=== PATIENT | male | born 2000 | race Caucasian/White ===

== ENCOUNTER 2020-10-27 11:43 | Outpatient (CLI) | payer BC, SELFPAY ==
--- NOTE | ~2020-10-27 | XR_ITS ---
EXAMINATION: XR ankle RT min 3V DATE: 10/27/2020 12:08 INDICATION: Right ankle injury. TECHNIQUE: 4 views of right ankle were obtained. COMPARISON: None. FINDINGS: Bone alignment is normal. No fracture. Joint spaces are well maintained. IMPRESSION: 1. Normal right ankle. Reviewed, dictated and finalized at location A. IMPRESSION: 1. Normal right ankle.
== END 2020-10-27 11:44 | disposition home or self-care (01) ==
LOC: ANHIMG 11:49
PROVIDERS: PCP Physician Assistant; Visit Provider Physician Assistant
DX: M25.579 Pain in unspecified ankle and joints of unspecified foot (principal)
CPT/HCPCS: 73610

== ENCOUNTER 2021-03-23 14:31 | Emergency (ER) | payer BC, SELFPAY ==
--- NOTE | ~2021-03-23 | XR_ITS ---
XR cervical spine 4-5V INDICATION: Neck pain after hockey injury TECHNIQUE: 5 views of the cervical spine. FINDINGS: No prior studies for comparison. The cervical spine is visualized to the cervicothoracic junction. Straightening of normal cervical lo rdosis, likely due to muscle spasm. There is no prevertebral soft tissue swelling, listhesis, or loss of vertebral body height. Intervertebral disc spaces are normal. The osseous central canal is lamb nt. No displaced cervical spine fractures are identified. IMPRESSION: 1. No acute osseous abnormality of the cervical spine. Reviewed, dictated and finalized at location B. [employer]
--- NOTE | 2021-03-23 14:38 | ED.NECK ---
HPI - Neck Pain/Injury General Chief Complaint: Neck Pain/Injury Stated Complaint: sore and stiff from hockey game Time Seen by Provider: 03/23/21 14:39 Source: patient, RN notes reviewed and old records reviewed Mode of arrival: ambulatory Limitations: no limitations History of Present Illness HPI Narrative: 20 year old male accompanied by mother presents to express care with complaints of having neck pain, headache and eye strain after playing in 2 hockey games over the weekend. Mother reports that yesterday's game was quite physical and patient got roughed up during game. Patient is able to move neck in all positions on own power and denies any tingling or numbness in his extremities. Patient voices headache and feelings of being chilled this afternoon with temp 102F noted at time of triage. Patient has not had COVID or influenza vaccinations, patient states that he was tested for COVID on Tuesday which was negative. Patient displays no nuchal rigidity,negative Kernig sign, no nausea or vomiting, alert and fully oriented . MD complaint: neck pain Related Data Allergies Allergy/AdvReac Type Severity Reaction Status Date / Time No Known Allergies Allergy Unverified 03/28/18 16:56 Review of Systems Review of Systems: CONSTITUTIONAL: Positive for fever, chills, or sweats. EYES: Denies visual changes, redness, or discharge, states eyes feel 'strained' ENT: Denies rhinorrhea, congestion, sore throat, or otalgia. CARDIOVASCULAR: Denies chest pain, palpitations, or edema. RESPIRATORY: Denies cough or dyspnea. GASTROINTESTINAL: Denies abdominal pain, nausea, vomiting, or diarrhea. GENITOURINARY: Denies dysuria or hematuria. SKIN: Denies rash or itching. MUSCULOSKELETAL: Denies back pain, positive for posterior neck pain, or myalgia. NEUROLOGIC: Positive for headache,no numbness, or weakness. PSYCHIATRIC: Denies anxiety or depression. All systems reviewed & are unremarkable except as noted in HPI and below PMFSH Past Medical History Medical History (Updated 03/23/21 @ 15:57 by Radha Leonard NP) Asthma Surgical History Surgical History (Updated 03/23/21 @ 15:58 by Radha Leonard NP) History of placement of ear tubes History of repair of pyloric stenosis Family History Family History (Updated 03/23/21 @ 16:03 by Radha Leonard NP) Other Heart disease Hypertension Social History Social History (Updated 03/23/21 @ 16:02 by Radha Leonard NP) Smoking status: Never smoker Alcohol intake: never Substance use: never Living arrangements: with family Gender identity (if verbalized by the patient): Male Comments At time of signature, agree with nursing past medical, surgical, social and family history. There is no relevant family history pertinent to the presenting complaint Exam Narrative: GENERAL: Well-appearing, well-nourished, and in no acute distress. HEAD: Normocephalic, atraumatic., no bruising noted to head or face EYES: PERRLA and EOMI, feelings of eye strain, no photophobia or visual changes. ENT: Nares clear, no rhinorrhea or epistaxis. Mucous membranes moist.TM's normal with god light reflex, throat has some redness no lesions or exudates noted no tonsil swelling. NECK: Supple. no lymphadenopathy, no nuchal rigidity, negative Kernig sign. CHEST: Clear to auscultation. No respiratory distress. HEART: Regular rate and rhythm. No murmur heard. Normal peripheral pulses. ABDOMEN: Soft, nontender, nondistended, normal active bowel sounds. EXTREMITIES: Normal range of motion. No edema. no tingling or numbness to upper extremities, SKIN: Warm, dry, no rash. NEURO: No focal deficits. Alert and oriented x3. Course Course Level of Care: Express Care Visit Vital Signs Vital signs: Vital Signs Temperature 38.8 C H 03/23/21 15:11 Pulse Rate 81 03/23/21 15:11 Respiratory Rate 16 03/23/21 15:11 Blood Pressure 130/76 03/23/21 15:11 Pulse Oximetry 100 03/23/21 15:11 Temperature
[2021-03-23 15:11] VITALS: BP 130/76; PULSE 81; RESP 16; TEMP 38.8; O2SAT 100
== END 2021-03-23 15:40 | disposition home or self-care (01) ==
PROVIDERS: Emergency Provider Registered Nurse; PCP Physician Assistant
DX: S16.1XXA Strain of muscle, fascia and tendon at neck level, initial encounter (principal); X58.XXXA Exposure to other specified factors, initial encounter; Y93.22 Activity, ice hockey; B34.9 Viral infection, unspecified; Z20.822 Contact with and (suspected) exposure to COVID-19; J45.909 Unspecified asthma, uncomplicated
CPT/HCPCS: 72050; 87081; 87426; 87804; 87880; 99213; C9803; G0463

== ENCOUNTER 2021-06-02 16:50 | Emergency (ER) | payer BC, SELFPAY ==
[2021-06-02 16:56] VITALS: BP 115/73; PULSE 74; RESP 12; TEMP 36.9; O2SAT 99
--- NOTE | 2021-06-02 17:34 | ED.URI ---
HPI - URI/Sore Throat General Chief Complaint: Upper Respiratory Infection Stated Complaint: FEVER/COLD/SWEATS/SORE THROAT/COUGH/NAUSEA/ACHY Time Seen by Provider: 06/02/21 17:24 Source: patient, family and RN notes reviewed Mode of arrival: ambulatory Limitations: no limitations History of Present Illness HPI Narrative: Patient presents today complaining of 3 to 4-day history of body aches and fatigue, fever up to 103, congestion, sweats. He has been taking Tylenol and ibuprofen with relief. He had a negative COVID-19 test at home. MD elicited complaint: fever and nasal congestion Related Data Home Medications Medication Instructions Recorded Confirmed atomoxetine PO 06/02/21 Allergies Allergy/AdvReac Type Severity Reaction Status Date / Time No Known Allergies Allergy Unverified 03/28/18 16:56 Review of Systems Review of Systems: CONSTITUTIONAL:+ Body aches, fatigue, sweats, fever EYES: Denies visual changes, redness, or discharge. ENT: Denies rhinorrhea, sore throat, or otalgia.+ Congestion CARDIOVASCULAR: Denies chest pain, palpitations, or edema. RESPIRATORY: Denies cough or dyspnea. GASTROINTESTINAL: Denies abdominal pain, nausea, vomiting, or diarrhea. GENITOURINARY: Denies dysuria or hematuria. SKIN: Denies rash, itching, or wounds. MUSCULOSKELETAL: Denies back pain, joint pain, or myalgia. NEUROLOGIC: Denies headache, numbness, tingling, or weakness. PSYCH: Denies depression or anxiety. PMFSH Past Medical History Medical History Asthma Surgical History Surgical History History of placement of ear tubes History of repair of pyloric stenosis Family History Family History Other Heart disease Hypertension Social History Social History Smoking status: Never smoker Alcohol intake: never Substance use: never Gender identity (if verbalized by the patient): Male Exam Narrative: GENERAL: Mildly ill-appearing, well-nourished, and in no acute distress. HEAD: Normocephalic, atraumatic. EYES: EOMI. No redness or drainage. Conjunctivae normal. ENT: Mucous membranes pink and moist. Nares congested. No rhinorrhea. TMs normal bilaterally. Throat normal. Uvula midline. NECK: Normal AROM. Supple. No lymphadenopathy. CHEST: No respiratory distress. Clear to auscultation. HEART: Regular rate and rhythm. No murmur appreciated. Normal peripheral pulses. EXTREMITIES: Normal range of motion. No edema. SKIN: Warm, dry, no rash. Capillary refill normal. Normal skin turgor. NEURO: No focal deficits. Alert and oriented x3. Gait steady. PSYCH: Normal affect. No signs of depression or anxiety. Course Course Level of Care: Express Care Visit Vital Signs Vital signs: Vital Signs Temperature 98.4 F 06/02/21 16:56 Pulse Rate 74 06/02/21 16:56 Respiratory Rate 12 06/02/21 16:56 Blood Pressure 115/73 06/02/21 16:56 Pulse Oximetry 99 06/02/21 16:56 Temperature 98.4 F 06/02/21 16:56 Pulse Rate 74 06/02/21 16:56 Respiratory Rate 12 06/02/21 16:56 Blood Pressure 115/73 06/02/21 16:56 Pulse Oximetry 99 06/02/21 16:56 Reviewed MDM - URI/Sore Throat Differential Diagnosis Differential diagnosis: Likely upper respiratory infection, sinusitis, viral infection, influenza and other (COVID-19) Lab Data Attestation: I reviewed the patient's lab results. Labs: Influenza A Screen Positive Reference Range: Negative Influenza B Screen Negative Reference Range: Negative Critical Care Time Critical Care Time Critical Care Time: No Discharge Plan Discharge Clinical Impression: Influenza A Patie
== END 2021-06-02 17:38 | disposition home or self-care (01) ==
PROVIDERS: Emergency Provider Nurse Practitioner; PCP Physician Assistant
DX: J10.1 Influenza due to other identified influenza virus with other respiratory manifestations (principal); J45.909 Unspecified asthma, uncomplicated
CPT/HCPCS: 87804; 99213; G0463

== ENCOUNTER 2021-12-09 17:38 | Outpatient (CLI) | payer BC, SELFPAY ==
--- NOTE | ~2021-12-09 | XR_ITS ---
EXAM: XR shoulder RT min 2V DATE: 12/09/2021 18:06 HISTORY: STRAIN OF MUSCLES/TENDONS OF THE ROTATOR CUFF OF RT SHOULDER . COMPARISON: None available. FINDINGS: Normal mineralization. No fracture or dislocation. No lytic or blastic lesion. Joint space s are maintained. No erosion or periosteal change. Soft tissues within normal limits. IMPRESSION: Normal right shoulder radiograph findings. Reviewed, dictated and finalized at location K.
== END 2021-12-09 17:39 | disposition home or self-care (01) ==
PROVIDERS: PCP Physician Assistant
DX: S23.3XXA Sprain of ligaments of thoracic spine, initial encounter (principal); S23.8XXA Sprain of other specified parts of thorax, initial encounter; S43.111A Subluxation of right acromioclavicular joint, initial encounter; S46.011A Strain of muscle(s) and tendon(s) of the rotator cuff of right shoulder, initial encounter; X58.XXXA Exposure to other specified factors, initial encounter; R06.02 Shortness of breath
CPT/HCPCS: 73030